=== PATIENT | male | born 2000 | race Caucasian/White ===

== ENCOUNTER 2023-02-09 19:40 | Emergency (ER) | payer SELFPAY ==
[2023-02-09] MEDS ORDERED: Diazepam 5 MG TAB ONE (19:46)
[2023-02-09 20:53] LABS: #Basophils 0.1 10x3/uL (0.0-0.2); #Monocytes 0.5 10x3/uL (0.0-1.1); #Neutrophils 2.2 10x3/uL (1.5-8.4); %Basophils 1.2 % (0.0-2.0); %Eosinophils 0.4 % (0.0-6.0); %Lymphocytes 47.4 % (18.0-47.0); %Monocytes 9.6 % (0.0-10.0); %Neutrophils 41.2 % (40.0-75.0); Hematocrit 45.8 % (38.8-50.0); Hemoglobin 16.5 g/dL (13.5-17.5); Mean Corpuscular Hemoglobin 33.5 pg (27.0-33.0); Mean Corpuscular Volume 93.1 fl (81.2-95.1); Mean Platelet Volume 10.4 fl (7.4-10.4); Platelet Count 207 10x3/uL (150-450); RBC Distribution Width 11.7 % (11.5-14.5); Red Blood Cell (RBC) Count 4.92 10x6/uL (4.32-5.72); White Blood Cell (WBC) Count 5.2 10x3/uL (3.5-10.5)
[2023-02-09 21:06] LABS: ALT (SGPT) 61 U/L (8-55); AST (SGOT) 67 U/L (5-34); Acetaminophen Less than 10 mcg/mL (10.0-30.0); Albumin 4.1 g/dL (3.5-5.0); Alcohol 295.1 mg/dL (Less than 10); Alkaline Phosphatase 86 U/L (40-110); Anion Gap 14 mmol/L (10-20); BUN (Urea Nitrogen) 5 mg/dL (8.9-20.6); Bilirubin, Total 0.8 mg/dL (0.2-1.2); Calc. Creatinine Clearance 0 mL/min (70-130); Calcium 8.4 mg/dL (7.8-10.44); Carbon Dioxide 25 mmol/L (22-29); Chloride 105 mmol/L (98-107); Estimated GFR 127; Globulin 3.3 g/dL (2.4-3.5); Glucose 97 mg/dL (70-105); Potassium 3.4 mmol/L (3.5-5.1); Protein, Total 7.4 g/dL (6.0-8.3); Salicylate Less than 8.0 mg/dL (15.0-30.0); Sodium 141 mmol/L (136-145)
[2023-02-09 22:01] LABS: Amphetamine Not Detected (NotDetected); Barbiturates Screen Not Detected (NotDetected); Benzodiazepine Screen Not Detected (NotDetected); Cocaine Metabolite Screen Not Detected (NotDetected); Methadone Not Detected (NotDetected); Methamphetamine Not Detected (NotDetected); Opiate Screen Not Detected (NotDetected); Oxycodone Screen Not Detected (NotDetected); Phencyclidine (PCP) Not Detected (NotDetected); THC/Cannabinoid Screen Not Detected (NotDetected); Tricyclic Screen Not Detected (NotDetected)
== END 2023-02-09 22:40 | disposition home or self-care (01) ==
LOC: CSHERS 19:40
DX: F10.129 Alcohol abuse with intoxication, unspecified (principal)
CPT/HCPCS: 36415; 70450; 80053; 80306; 80307; 84146; 85025; 93005